=== PATIENT | male | born 1950 | race Caucasian/White ===

== ENCOUNTER 2022-07-04 23:26 | Emergency (ER) | payer MEDICARE, SELFPAY ==
[2022-07-04 23:36] VITALS: BP 126/83; BP 128/81; PULSE 81; PULSE 91; RESP 18; TEMP 36.8; O2SAT 94; O2SAT 96; BMI 26.6
--- NOTE | 2022-07-04 23:43 | ED_ITS ---
HPI - Wound/Laceration General Chief Complaint: General Medical Stated Complaint: vericose vein Related Data Related Data Mode of arrival: EMS Limitations: no limitations Allergy/AdvReac Type Severity Reaction Status Date / Time
--- NOTE | 2022-07-04 23:43 | ED.WOUNDLAC ---
HPI - Wound/Laceration General Chief Complaint: General Medical Stated Complaint: vericose vein Time Seen by Provider: 07/04/22 23:43 Source: patient and EMS Mode of arrival: EMS Limitations: no limitations History of Present Illness HPI narrative: 72-year-old male presents via EMS for left lower extremity bleeding. Patient had a scab on his left lower extremity, suspected to be over a varicose vein, and the scab fell off while he was drying himself off after showering. He is on Eliquis for history of multiple PEs, and was unable to control the bleeding. EMS placed a pressure dressing to the right lower extremity. Patient does not report any fevers or chills, and denies any other medical complaints at this time. Onset (ago): hour(s) (Within the hour of arrival) Extremity Location: right: ankle Place: home Patient tetanus UTD: No Context: accidental Associated symptoms: none Treatments prior to arrival: bandage Related Data Allergies Allergy/AdvReac Type Severity Reaction Status Date / Time No Known Allergies Allergy Unverified 06/13/20 14:53 Review of Systems Review of Systems: Constitutional: No Fever, No Chills ENT/Mouth: No Ear Pain, No Hoarseness, No sore throat Eyes: No Eye Pain, No Swelling, No Redness, No Foreign Body Cardiovascular: No Chest Pain, No SOB Respiratory: No Cough, No Dyspnea Gastrointestinal: No Nausea, No Vomiting, No Diarrhea, No abdominal Pain Genitourinary: No Dysuria, No Hematuria Musculoskeletal: No joint pain, No Myalgias, No Joint Swelling Skin: Positive varicose vein rupture, No Skin lacerations, No rash Neuro: No Weakness, No Numbness, No Paresthesias, No Loss of Consciousness, No Dizziness, No Headache Psych: No Anxiety/Panic, No Depression Heme/Lymph: no easy bruising, no Lymphadenopathy Endocrine: No Polyuria, No Polydipsia Yes all other systems are reviewed and are negative PMFSH Past Medical History Attestation statement: The following information was validated with the patient. Source: old records reviewed Social History Social History Advance Directives: Yes Advance Directives Information Provided: No Advance Directives on File: No Physical Exam Vital Signs: Vital Signs: Last Vital Signs Temp 98.2 F 07/04/22 23:36 Pulse 72 07/05/22 00:06 Resp 18 07/05/22 00:06 BP 130/68 07/05/22 00:06 Pulse Ox 95 07/05/22 00:06 O2 Del Method 07/05/22 00:06 BMI result Body Mass Index 26.6 Appearance: Alert. Oriented X3. No acute distress. Eyes: Pupils equal, round and reactive to light. ENT: Pharynx normal. Neck: Normal inspection. Neck supple. CVS: Normal heart rate and rhythm. Pulses normal. Respiratory: No respiratory distress. Breath sounds normal. Abdomen: Soft and nontender. Skin: 1 mm in diameter opening 2 cm above the right medial malleolar process, Skin warm and dry. Normal skin color. Normal skin turgor. Extremities: No lower extremity edema. Moves all extremities against resistance. Neuro: No motor deficit. No sensory deficit. Cranial nerves 2-12 intact. Course Course Course Narrative: 72-year-old male presents via EMS for bleeding varicosity to the right lower extremity 2 cm above the medial malleolar process. There is an approximately 1 in diameter opening on a varicosity. Bleeding is controlled at this time, however due to patient's Eliquis, and the appearance of the site, plan is to suture to prevent further bleeding. Tdap vaccine will be updated today. Patient has no other medical complaints. Afebrile, appears nontoxic, alert oriented x4, vital signs are stable and within normal limits. Patient verbalized understanding of the procedure and agrees to the plan. 00:48, no bleeding noted to the right lower extremity. Plan of care is to discharge home with patient to follow-up with primary care provider. Patient verbalized understanding of and agrees to plan of care discharge home. Verbalized understanding of signs and symptoms indicating need for emergent intervention. MDM - Wound/Laceration MDM Narrative Medical decision making narrative: Ruptured varicosity Medical Records Attestation: I reviewed the patient's medical records. Procedures Laceration Laceration 1: Site: lower extremity Side (If applicable): right Size (cm): 0.01 Description: other (Punctate) Depth: simple, single layer Local Anesthetic: lidocaine 1% and with epi Amount of anesthesia used (mL): 3 Pre-repair: wound explored and irrigated extensively Skin layer closed with: nylon Size (cm): 4-0 Number of sutures: 3 Technique: simple, interrupted Discharge Plan Discharge Clinical Impression: Ruptured varicose vein Patient Disposition: Home, Self-Care Instructions: Care For Your Stitches (ED), Laceration (ED) Additional Instructions: You were evaluated for a ruptured varicose vein. We placed 3 sutures to the site. Please return in 5-7 days to have sutures removed. You may present to the Emergency Department, primary care physician, urgent care, or appropriate medical facility of your choosing. Monitor for signs and symptoms indicating infection, if you notice any signs including but not limited to, fevers, chills, swelling, purulent drainage from the site, red lines coming from the site, return to the emergency department or primary care. Thank you for choosing this emergency department for evaluation. Please follow-up with primary care physician as needed. Return to the emergency department for any new, concerning, or worsening symptoms. Referrals: Calixto Thomas MD [Primary Care Provider] - 1 week (Varicose vein ligation)
[2022-07-05 00:06] VITALS: BP 130/68; PULSE 72; RESP 18; O2SAT 95
[2022-07-05 01:33] VITALS: BP 136/71; PULSE 72; RESP 17; TEMP 36.4; O2SAT 96
[2022-07-05] MEDS: Lidocaine HCl 2%/Epi 1:100,000 20 ML VIAL INFILTRATI (01:58)
[2022-07-05] MEDS: Diphth,Pertus(ACell),Tet Adult 0.5 ML SYRINGE IM (01:58)
== END 2022-07-05 02:33 | disposition home or self-care (01) ==
PROVIDERS: Emergency Provider Emergency Medicine; PCP Internal Medicine
DX: S81.811A Laceration without foreign body, right lower leg, initial encounter (principal); W26.9XXA Contact with unspecified sharp object(s), initial encounter; Y93.9 Activity, unspecified; Y92.9 Unspecified place or not applicable; Y99.9 Unspecified external cause status; Z79.899 Other long term (current) drug therapy; Z79.01 Long term (current) use of anticoagulants
CPT/HCPCS: 12001; 90471; 90715; 99284